=== PATIENT | female | born 1995 | race Caucasian/White ===

== ENCOUNTER → 2021-02-06 09:56 | Outpatient (CLI) | payer OTHER, SELFPAY ==
--- NOTE | 2021-02-06 09:59 | DIET.PN ---
Dietary Progress Note Assessment: 26y F [employer] attending nutrition visit for help with healthy eating during in context of struggles c binge/purge behaviors throughout teen and adult life. Pt is 17w , had hyperemesis with first , zofran now once daily and appetite is coming back. Pt having some feelings of guilt around eating high carb foods and bad foods, feels like a hypocrite sneaking these foods while encouraging healthy eating for the family. Pt seeing psychiatrist and counselor to manage anxiety and ED tendencies. Pt feeling bad she is heavier at start of this than at the end of her first. Pt started binging/purging 1-2x/w in teen years, overeats and feels bad consuming all the calories then purges and is exhausted which masks guilty emotions. Pt's mom strugged c disordered eating and laxative abuse often cycling between 150# and 250#. Pt wants to have healthy and a better relationship to food. Wants to be healthy and a good role model, especially for her daughter who is en utero. Usual Day: wakes 8am B: breakfast burrito-egg c cheese and archibald from hospital L: bagel c cream cheese from coffee cart or lunch at cafeteria D: roast in crock pot c naan, couscous, green beans preps chicken and fozen veggies for 16mo son Recently has anchored day with aussie bite and bengali yogurt, makes her feel better about day than bagel at coffee cart grocery shopping: [place] near home, usually grocery shops after work when hungry, doesn't use list, but sometimes goes together as family best times happen when meal prepping and has healthy options on hand eating out a lot during this , feeling bad about it, also caves in to this. trigger foods: breakfast cereal Exercise: No current physical activity. Prior to first and covid, went to [employer] and went to classes that were like crossfit and would go prior to work rather than after. [place] [address] [place] current stroller does not easily maneuver. Nutrition Diagnosis: disordered eating behaviors r/t food and nutrition related knowledge deficit aeb pt labelling foods as good and bad, pt has unreasonable expectations around healthy eating-one bad choice can derail whole lifestyle, pt struggles c binge/purge behaviors, pt has anxiety which contributes to disordered eating. Interventions: 1. To support healthy meal timing and volume habits, using handout, introduced pt to hunger scale to start to identify her hunger and fullness cues. Pt will start eating at a 3 and stopping at an 8 to better understand ideal meal timing and portion sizes for her body. Pt will use hunger scale to identify when she is emotional/boredom/mindlessly eating and will discuss this with her therapist as desired to start developing better coping mechanisms that are not food related. 2. To support habit change, discussed role of habits in eating and physical activity. Pt has concerns about weight but is not participating in exercise at this time. Encouraged pt to get off road stroller and to take 20 minute family walks daily after dinner. Encouraged pt to look into gym which has childcare to support active lifestyle. Encouraged pt to take 10min walk around hospital campus after lunch. 3. To support healthy food choices, educated pt on plate balance using handout and food models. Encouraged pt to create meals and snacks which are 1/4 pro, 1/4 cho, and 1/2 F/nonstarchy veggies to ensure nutritional adequacy and appetite satisfaction. Pt feels guilty when eating bagels and realized its not because its a bagel, but because its not balanced with protein and vegetable foods. Pt will follow this model 80% of time but no more to avoid strict food routines and to allow flexibility without judgment. 4. To support healthy , provided pt c [facility] Healthy guide. 5. To support easy to grab, healthy snacks, provided pt handout on Healthy Snacks Under 200kcal. 6. To help pt meet her goal of raising healthy, competent eaters in her children, suggested book Its Not About the Broccoli and website [employer] [facility] [place] pt look into [facility] in [place] which specializes in outpatient disordered eating both from nutrition and counselling standpoint. Monitoring/Evaluations: f/u in 6w to assess progress and problem solve barriers.
== END ==
PROVIDERS: Referring Provider Psychiatry & Neurology Psychiatry; Visit Provider Psychiatry & Neurology Psychiatry
DX: O26.892 Other specified pregnancy related conditions, second trimester (principal); F50.2 Bulimia nervosa; F41.9 Anxiety disorder, unspecified; Z71.3 Dietary counseling and surveillance; Z3A.18 18 weeks gestation of pregnancy
CPT/HCPCS: 97802